=== PATIENT | female | born 1965 ===

== ENCOUNTER 2017-11-14 10:40 | Outpatient (CLI) | payer OTHER ==
[~2017-11-14] VITALS: Ht 152.4 cm; Wt 86.2 kg
== END 2017-11-14 11:00 | disposition home or self-care (01) ==
LOC: OFIC 805 10:40
DX: H80.83 Other otosclerosis, bilateral (principal)

== ENCOUNTER 2021-02-14 16:06 | Outpatient (CLI) | payer OTHER | END 2021-02-14 16:57 | disposition home or self-care (01) | LOC: OFIC 805 16:06 | PROVIDERS: ATTEND Otolaryngology Otology & Neurotology | DX: H80.83 Other otosclerosis, bilateral (principal); H90.0 Conductive hearing loss, bilateral ==